=== PATIENT | female | born 1975 | race Two or more races ===

== ENCOUNTER 2021-05-10 11:56 | Emergency (ER) | payer OTHER ==
[~2021-05-10] VITALS: Ht 157.5 cm; Wt 67.6 kg
[2021-05-10] MEDS ORDERED: SYNTHROID125 MCG PO (12:14)
[2021-05-10] MEDS ORDERED: NORFLEX100MG PO (19:27)
[2021-05-10] MEDS ORDERED: KETO10TA2 PO (19:27)
== END 2021-05-10 20:03 | disposition home or self-care (01) ==
LOC: ER 11:56
DX: R07.89 Other chest pain (principal)